=== PATIENT | female | born 1955 | race Two or more races ===

== ENCOUNTER 2025-06-14 06:44 | Day surgery (SDC) | payer OTHER, MEDICAID ==
[~2025-06-14] VITALS: Ht 162.6 cm; Wt 78.9 kg
[~2025-06-14 06:44] MED LIST: ATOR10TA PO; CHOL20007 OR; HYDR12.59 PO; LOSA25TA5 PO; PANT40TA2 PO
[2025-06-14] MEDS ORDERED: LIDOCAINE VISCOUS 2% 15ML UD MT PRN (09:45)
[2025-06-14] MEDS ORDERED: MIDAZOLAM HCL 2MG/2ML 2ml VIAL (1mg/ml) IV ONE (09:45)
[2025-06-14] MEDS ORDERED: fentaNYL CITRATE 100 MCG/2 ML VL IV ONE (09:45)
--- NOTE | 2025-06-14 10:47 | DVHOP2 ---
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 The patient was brought to the cardiac outside laborer in n.p.o. state. the patient was given 15 ml of oral viscous lidocaine. the patient was placed in a left lateral decubitus position with bite block in mouth. NExt conscious sedation was administered per outside laborer protocol with __1 mg of versed and _50__ mcg of fentanyl. Next a ROBERT probe was advanced to the mid esophagus with ease and multiple planar images obtained. At the completion of the procedure , probe was removed and there were no immediate complications. FINDINGS: Left Ventricle: Normal LV size and function, LVEF estimated at 60% sigmoid septum Right Ventricle: NOrmal RV size and function Left atrium: enlarged, Right atrium: mild enlarged Left atrial appendage: no thrombus noted, Aortic valve: trileaflet valve,mild to moderate AI, vena contract is 0.2 Mitral Valve: structurally normal, mild mitral regurg, no MS Tricuspid Valve: mild tricuspid regurgitaiton, no TS Pulmonic Valve: strucutrally normal, no severe PIor PS Interatrial septum: negative color flow for R to L shunt, negative bubble study Ascending aorta: no severe plaquing SHERRI SILVA MD Jun 14, 2025 10:47
--- NOTE | 2025-06-14 14:24 | ECG ---
[facility] Test Date: 2025-06-14 Test Time: 09:55:06 Pat Name: NEELAM RASCON Department: Room: Gender: F Grounds Foreman: TOMMY : 1955 Requested By: SHERRI SILVA Order Number: [id number] Reading MD: Anil Cleaning Measurements Intervals Excel Rate: 58 P: 24 SC: 170 QRS: 8 QRSD: 78 T: 11 QT: 484 QTc: 475 Interpretive Statements Sinus bradycardia Electronically Signed On 06-17-2025 21:07:34 PDT by Anil Cleaning Please click the below link to view image of tracing.
== END 2025-06-14 12:28 | disposition home or self-care (01) ==
LOC: CATH 06:44
PROVIDERS: ATTEND Internal Medicine
DX: I08.3 Combined rheumatic disorders of mitral, aortic and tricuspid valves (principal); I10 Essential (primary) hypertension; E78.2 Mixed hyperlipidemia; Z79.899 Other long term (current) drug therapy; Z98.890 Other specified postprocedural states
CPT/HCPCS: 93005; 93312; J2250; J3010; 99152